=== PATIENT | female | born 1940 | race Caucasian/White ===

== ENCOUNTER → 2018-02-01 | Outpatient (CLI) | payer MEDICARE ==
--- NOTE | 2018-02-02 09:00 | RADIOLOGY REPORT (SQ) ---
EXAM DESCRIPTION: MRI ORBIT/FACIAL/NECK COMBO COMPLETED DATE/TIME: 02/01/2018 9:07 pm REASON FOR STUDY: R23.3 SPONTANEOUS ECCHYMOSES R22.0 LOCALIZED SWELLING, MASS AND LUMP, HEAD R23.3 SPONTANEOUS ECCHYMOSES R58 HEMORRHAGE, NOT ELSEWHERE CLASSIFIED R22.0 LOCALIZED SWELLING, MASS AND LUMP, HEAD COMPARISON: None. TECHNIQUE: Multiplanar imaging includes non-contrasted T1, T2, FLAIR, diffusion with ADC map and pos t gadolinium contrast sequences. Additional thin slice images with and without gadolinium contrast a cquired of the orbits. Images stored on PACS. CONTRAST TYPE AND DOSE: 15 mL Prohance. RENAL FUNCTION: GFR > 60. LIMITATIONS: Please note that the axial images exhibit wraparound artifact, partially obscuring the occiput. FINDINGS: Along the left superior orbital rim/forehead, a 2.5 cm craniocaudad by 1.6 cm AP x 1.6 cm nodule is present in the subcutaneous fat. This has minimal peripheral rim enhancement and has mixed T1 and T2 signal suggesting a subacute hematoma. No large feeding or draining vessels. No adjacent bone contusion or fluid in the frontal sinuses. Adjacent frontal brain and subdural spaces are unre markable. ANATOMY: No anomalies. Normal vascular flow voids. Pituitary fossa normal. CSF SPACES: Normal in size and contour. CEREBRUM: Sulci and gyri normal in size and contour. Normal white matter signal on FLAIR imaging. N o hemorrhage. No edema, masses or mass effect. No enhancing lesions. POSTERIOR FOSSA: No signal alteration. No hemorrhage. No edema, masses or mass effect. Internal mary kate tory canals, cerebello-pontine angles, mastoids normal. No enhancing lesions. DIFFUSION IMAGING: Negative for acute or sub-acute infarction. ORBITS: No masses. Globes normal. Extraocular muscles and optic nerves normal. Orbital fat clear. No inflammatory changes or enhancement. PARANASAL SINUSES: No fluid levels. Mucosa normal. OTHER: Facial soft tissues are otherwise unremarkable. Mild degenerative disc changes in the visuali zed cervical spine most pronounced at C5-6 with mild central canal narrowing and moderate bilateral f oraminal narrowing. IMPRESSION: Small hematoma in the subcutaneous fat over the left forehead/ superior orbital rim TECHNICAL DOCUMENTATION: JOB ID: [id number] [employer]- All Rights Reserved Reading location - IP/workstation name: [email or web address]
== END ==
LOC: RAD 19:52
PROVIDERS: ATTEND Internal Medicine Hematology & Oncology
DX: R22.0 Localized swelling, mass and lump, head (principal); R23.3 Spontaneous ecchymoses; R58 Hemorrhage, not elsewhere classified
CPT/HCPCS: 70543; 82565